=== PATIENT | male | born 1990 | race Caucasian/White ===

== ENCOUNTER 2016-09-25 18:10 | Emergency (ER) | payer SELFPAY ==
[~2016-09-25] VITALS: Ht 182.9 cm; Wt 119.1 kg
[~2016-09-25 18:10] MED LIST: ADVIL200 M1 PO; HYDROCODON-ACE1 EAC7 PO; MOTRIN800 MG PO; NOHOMEMEDS; ZITHROMAX Z-PA250 MG PO
[2016-09-25 18:56] LABS: HEMATOCRIT 44.9 % (38.0-50.0); MCH 27.4 PG (29.0-34.0); MCHC 33.4 G/DL (30.0-36.0); MCV 81.9 FL (86-99); MEAN PLAT.VOLUME 10.4 uM^3 (9.0-12.4); PLATELET COUNT 196 K/uL (156-360); RBC DIS.WIDTH-CV 12.6 % (11.8-14.6); RBC DIS.WIDTH-SD 37.7 % (39-53); RED BLOOD COUNT 5.48 M/uL (4.00-5.50); WHITE BLOOD COUNT 6.5 K/uL (4.1-10.2)
[2016-09-25 19:08] LABS: CHLORIDE 103 mEq/L (99-109); POTASSIUM 4.3 mEq/L (3.7-5.4); SODIUM 137 mEq/L (136-147)
[2016-09-25 19:10] LABS: GLUCOSE 87 mg/dL (70-99)
[2016-09-25 19:11] LABS: ANION GAP 11 MEQ/L (2-14)
[2016-09-25 19:14] LABS: GFR ESTIMATE (CALCULATED) > 59 mL/min/
[2016-09-25 19:15] LABS: UREA NITROGEN (BUN) 8 mg/dL (9-23)
[2016-09-25 21:46] LABS: ADD MIUA? NO; BILIRUBIN NEGATIVE; BLOOD NEGATIVE; COLOR YELLOW ((YELLOW)); GLUCOSE (STRIP) NEGATIVE; KETONES 20; LEUKOCYTES NEGATIVE; NITRITE NEGATIVE; PROTEIN (STRIP) NEGATIVE; SPECIFIC GRAVITY 1.012 (1.000-1.030); UCUL ADDED? NO; UROBILINOGEN 0.2 MG/DL (0.2-1.0)
[2016-09-25 22:20] LABS: INFLUENZA A VIRAL ANTIGEN NEGATIVE; INFLUENZA B VIRAL ANTIGEN NEGATIVE
[2016-09-25] MEDS ORDERED: ZOFRAN ODT4 MG PO (22:38)
[2016-09-25 22:47] VITALS: BP 123/68
== END 2016-09-25 22:50 | disposition home or self-care (01) ==
LOC: EXP 18:10 → EME 18:10 → EXP 22:50
PROVIDERS: Physician Assistant
DX: R11.2 Nausea with vomiting, unspecified (principal); R19.7 Diarrhea, unspecified; B34.9 Viral infection, unspecified; R05 Cough; J02.9 Acute pharyngitis, unspecified; R51 Headache
CPT/HCPCS: 80048; 81003; 85027; 87502; 87651 90; 99281; 99284

== ENCOUNTER 2017-10-21 22:18 | Emergency (ER) | payer SELFPAY ==
[~2017-10-21] VITALS: Ht 182.9 cm; Wt 119.8 kg
[~2017-10-21 22:18] MED LIST changes: +ZOFRAN ODT4 MG PO
[2017-10-21] MEDS ORDERED: DELTASONE20 M1 PO (23:00)
[2017-10-21] MEDS ORDERED: ZITHROMAX Z-PA250 MG PO (23:00)
[2017-10-21 23:26] VITALS: BP 144/81
== END 2017-10-21 23:27 | disposition home or self-care (01) ==
LOC: EME 22:18
DX: J20.9 Acute bronchitis, unspecified (principal)
CPT/HCPCS: 99281; 99283; J7512